=== PATIENT | female | born 1985 | race Caucasian/White ===

== ENCOUNTER 2022-10-03 07:40 | Outpatient (REF) | payer BC, SELFPAY ==
[2022-10-03 12:05] LABS: Basophils Absolute Auto 0.1 X10*3/uL (0.0-0.2); Basophils Percent Auto 0.6 % (0-2); Eosinophils Absolute Auto 0.1 X10*3/uL (0.0-0.4); Eosinophils Percent Auto 1.2 % (0-4); Hematocrit 41.9 % (37.0-47.0); Hemoglobin 13.9 g/dl (12.0-16.0); Imm Gran Abs Auto 0.03 X10*3/uL (0.00-0.03); Imm Gran Pct Auto 0.3 % (0.0-0.4); Lymphocytes Absolute Auto 4.4 X10*3/uL (1.2-4.9); MANUAL DIFF FLAG SCAN; Mean Corpuscular HGB Conc 33.2 g/dl (31.0-35.0); Mean Corpuscular Hemoglobin 30.9 pg (27.0-33.0); Mean Corpuscular Volume 93.1 fL (80.0-98.0); Mean Platelet Volume 11.6 fL (9.4-12.3); Monocytes Absolute Auto 1.1 X10*3/uL (0.1-1.2); Monocytes Percent Auto 9.7 % (2-11); Neutrophils Absolute Auto 5.3 x10*3/uL (2.0-8.3); Neutrophils Percent Auto 48.2 % (45-73); Platelet Count 289 X10*3/uL (160-400); Red Cell Distribution Width 13.7 % (11.0-16.0); SCAN SMEAR FLAG 1; White Blood Count 10.9 X10*3/uL (4.8-10.8)
[2022-10-03 12:08] LABS: Appearance Urine Cloudy; Color Urine Yellow; Glucose Urine UA Negative (Negative); Leukocyte Esterase Urine Negative (Negative); Nitrite Urine Negative (Negative); PH >= 9.0 (5.0-9.0); Specific Gravity - Urine 1.025 (1.005-1.025); Urine Blood Negative (Negative); Urine Ketones Negative (Negative); Urine Protein Trace mg/dL (Neg-Trace)
[2022-10-03 13:00] LABS: SLIDE REVIEW VERIFIED
[2022-10-03 15:56] LABS: Alanine Aminotransferase 8 U/L (0-31); Albumin Level 4.3 g/dL (3.5-5.0); Alkaline Phosphatase 49 U/L (39-117); Anion Gap 15 (12-20); Aspartate Amino Transferase 12 U/L (5-31); Bilirubin Total 0.3 mg/dL (0.0-1.0); Blood Urea Nitrogen 13 mg/dL (9-16); Calcium 9.1 mg/dL (8.4-10.2); Carbon Dioxide 21 mmol/L (22-29); Chloride 109 mmol/L (96-108); Cholesterol 179 mg/dL; Estimated Glomerular Filt Rate > 60; Glucose Fasting 103 mg/dL (60-99); HDL Cholesterol 45 mg/dL; LDL Cholesterol Calculated 113 mg/dl; Potassium 4.1 mmol/L (3.3-5.1); Sodium 141 mmol/L (135-145); Total Protein 6.6 g/dL (6.5-8.0); Triglycerides 108 mg/dL
[2022-10-03 16:00] LABS: TSH reflex Free T4 1.46 uIU/mL (0.32-4.0)
== END 2022-10-03 07:41 | disposition home or self-care (01) ==
LOC: HO.WFDLDS 07:40
PROVIDERS: Visit Provider Nurse Practitioner Family
DX: Z00.00 Encounter for general adult medical examination without abnormal findings (principal)
CPT/HCPCS: 36415; 80053; 80061; 81003; 84443; 85025

== ENCOUNTER 2022-10-10 07:07 | Outpatient (REF) | payer BC, SELFPAY ==
[2022-10-10 11:18] LABS: MANUAL DIFF FLAG NO
[2022-10-10 11:23] LABS: Basophils Absolute Auto 0.1 X10*3/uL (0.0-0.2); Basophils Percent Auto 0.6 % (0-2); Eosinophils Absolute Auto 0.1 X10*3/uL (0.0-0.4); Hematocrit 41.2 % (37.0-47.0); Hemoglobin 13.9 g/dl (12.0-16.0); Imm Gran Abs Auto 0.02 X10*3/uL (0.00-0.03); Imm Gran Pct Auto 0.2 % (0.0-0.4); Lymphocytes Absolute Auto 3.8 X10*3/uL (1.2-4.9); Lymphocytes Percent Auto 35.8 % (20-40); Mean Corpuscular HGB Conc 33.7 g/dl (31.0-35.0); Mean Corpuscular Hemoglobin 31.3 pg (27.0-33.0); Mean Corpuscular Volume 92.8 fL (80.0-98.0); Mean Platelet Volume 11.4 fL (9.4-12.3); Monocytes Absolute Auto 1.1 X10*3/uL (0.1-1.2); Monocytes Percent Auto 10.4 % (2-11); Neutrophils Absolute Auto 5.5 x10*3/uL (2.0-8.3); Platelet Count 289 X10*3/uL (160-400); Red Blood Count 4.44 X10*6/uL (4.20-5.50); Red Cell Distribution Width 13.6 % (11.0-16.0); White Blood Count 10.6 X10*3/uL (4.8-10.8)
[2022-10-10 11:41] LABS: Alanine Aminotransferase 10 U/L (0-31); Albumin Level 4.4 g/dL (3.5-5.0); Alkaline Phosphatase 51 U/L (39-117); Anion Gap 15 (12-20); Aspartate Amino Transferase 11 U/L (5-31); Blood Urea Nitrogen 10 mg/dL (9-16); Calcium 9.5 mg/dL (8.4-10.2); Carbon Dioxide 20 mmol/L (22-29); Chloride 110 mmol/L (96-108); Cholesterol 175 mg/dL; Estimated Glomerular Filt Rate > 60; Glucose Fasting 101 mg/dL (60-99); HDL Cholesterol 43 mg/dL; LDL Cholesterol Calculated 116 mg/dl; Potassium 3.9 mmol/L (3.3-5.1); Sodium 141 mmol/L (135-145); Triglycerides 83 mg/dL
[2022-10-10 12:18] LABS: TSH reflex Free T4 1.81 uIU/mL (0.32-4.0)
[2022-10-10 12:28] LABS: Appearance Urine Clear; Color Urine Yellow; Glucose Urine UA Negative (Negative); Leukocyte Esterase Urine Negative (Negative); Nitrite Urine Negative (Negative); Urine Blood Negative (Negative); Urine Ketones Negative (Negative); Urine Protein Negative (Neg-Trace)
== END 2022-10-10 07:08 | disposition home or self-care (01) ==
LOC: HO.WFDLDS 07:07
PROVIDERS: Visit Provider Nurse Practitioner Family
DX: Z00.00 Encounter for general adult medical examination without abnormal findings (principal); D72.829 Elevated white blood cell count, unspecified
CPT/HCPCS: 36415; 80053; 80061; 81003; 84443; 85025

== ENCOUNTER 2023-05-06 09:32 | Outpatient (AMB) | payer BC, SELFPAY ==
--- NOTE | 2023-05-06 09:40 | MHC.PC.OV ---
Vital Signs 05/06/23 09:42 Height 5 ft 3 in Weight 106 lb 2 oz BMI 18.8 BP 100/62 Blood Pressure Location Lt brachial Position Sitting Pulse 106 H Pulse Source Pulse Oximeter Pulse Oximetry (%) 96 Oxygen Delivery Method Room Air Intake Visit Reasons: right side nose pain/Knee pain Intake Note: pt is here for right knee pain for and has been seen in the walk-in but she says it comes and goes Allergies No Known Allergies Allergy (Verified 09/30/22 14:07) Medication List - Last Reconciled 05/06/23 by IAN Escalante hydroxyzine HCl 5 - 10 mg PO BID PRN olanzapine 10 mg PO BEDTIME 30 days Tobacco use date assessed: 05/06/23 Dental Screening Dental Screen Date: 05/06/23 Did you have a dental visit in the last 12 months?: Yes Did you have a dental problem in the last 6 months where you did not have access to dental care?: No Was dental information given to patient?: Patient has dentist HPI right side nose pain/Knee pain HPI Details Pt c/o right knee pain. She reports that this is worse with movement especially kneeling. She has difficulty getting in and out of bed due to the pain. Pt also reports intermittent bruising and erythema. She denies any swelling. Will order XR. Denies fever, chills, and dizziness. [facility] Medical History Anxiety H/O psychiatric care Surgical History History of hysterectomy History of lumpectomy of left breast History of salpingectomy S/P right knee surgery Family History Father Bipolar 1 disorder Substance use disorder Mental health disorder Mother Vertigo Paternal Grandmother Breast cancer Paternal Aunt Breast cancer Maternal Grandfather Emphysema, unspecified Maternal Grandmother Vertigo Skin cancer Social History Housing: House Patient Tobacco Use Status: Current everyday Tobacco user Cigarettes Per Day: 10 e-Cigarette/Vaping Use: Currently Using Second Hand Smoke Exposure: No service: No Current occupational status: employed Current occupation: insurance Current occupational exposures/hazards: No Cognitive needs: No Hearing needs: No Vision needs: No Questionnaire Thrive Questionnaire Date Thrive assessed: 09/30/22 DIMITRI-7 AMB Questionnaire DIMITRI-7 Date DIMITRI - 7 assessed: 09/30/22 Source: Developed by Drs. Arnulfo Sanchez, Alicia Jackson, Luis Antonio Nuno and colleagues, with an educational dwight from [employer]. Review of Systems Const Reports as per HPI Physical exam (Primary Care) Vital Signs: Last Vital Signs Pulse 106 H 05/06/23 09:42 BP 100/62 05/06/23 09:42 Pulse Ox 96 05/06/23 09:42 Oxygen Delivery Method Room Air 05/06/23 09:42 BMI result Body Mass Index 18.8 Tobacco/Smoking Status: Tobacco use Status Tobacco use date assessed 05/06/23 05/06/23 09:46 Patient Tobacco Use Status Current everyday Tobacco 05/06/23 09:41 e-Cigarette/Vaping Use Currently Using 05/06/23 09:41 Thrive Assessment: Date of Thrive Assessment Date Thrive assessed 09/30/22 05/06/23 09:41 Const General: cooperative Orientation/consciousness: patient oriented x3 Resp Effort & Inspection: normal respiratory effort Auscultation: clear to auscultation bilaterally Cardio Rate: regular rate Rhythm: regular rhythm Heart sounds: S1 normal heart sound present and S2 normal heart sound present Neuro General: patient oriented x3 Extrem Other: right knee: ? patellar hematoma, bony structure, - lachmans, - mcmurrays, able to extend and flex with minimal crepitus Psych Appearance: grossly normal Mental Status: mental status grossly normal Speech and movement: Normal speech and movement present Affect: normal affect Attitude: cooperative Thought process: Normal thought process present Thought content: Normal thought content present Insight: Good insight present (Psych) Judgement: Good judgement present (Psych) Assessment and Plan Assessment & Plan (1) Right knee pain: Code(s): M25.561 - Pain in right knee Plan: XR ordered Plan The patient agreed to the use of a biomedical equipment tech for this encounter. Scribed for IAN Palma by Linda Aguilar biomedical equipment tech, on 05/06/2023 at 09:50 EST Orders: Orders Comprehensive [place]. Panel Fast Today Z00.00 - Encounter for general adult medical examination without abnormal findings TSH reflex Free T4 Today Z00.00 - Encounter for general adult medical examination without abnormal findings UA CC w/rflx Micro + Cult Today Z00.00 - Encounter for general adult medical examination without abnormal findings Lipid Panel Today Z00.00 - Encounter for general adult medical examination without abnormal findings Complete Blood Count Auto Diff Today Z00.00 - Encounter for general adult medical examination without abnormal findings Coding Level of Care Code Est Pt Level 3 (08302) Diagnoses Right knee pain M25.561
[2023-05-06 09:42] VITALS: BP 100/62; PULSE 106; O2SAT 96; BMI 18.8
== END 2023-05-06 10:14 | disposition home or self-care (01) ==
PROVIDERS: PCP Nurse Practitioner Family; Visit Provider Nurse Practitioner Family
DX: M25.561 Pain in right knee (principal)
CPT/HCPCS: 99213

== ENCOUNTER 2023-05-06 09:59 | Outpatient (REF) | payer BC, SELFPAY | END 2023-05-06 10:00 | disposition home or self-care (01) | LOC: HO.HMGCX 09:59 | PROVIDERS: PCP Nurse Practitioner Family; Visit Provider Nurse Practitioner Family | DX: M25.561 Pain in right knee (principal) | CPT/HCPCS: 73564 ==

== ENCOUNTER 2023-09-02 08:41 | Emergency (ER) | payer BC, SELFPAY ==
[2023-09-02 08:50] VITALS: BP 116/88; PULSE 90; RESP 18; TEMP 37.1; O2SAT 97; BMI 18.0
--- NOTE | 2023-09-02 09:53 | ED_ITS ---
HPI - Eye Problem General Chief complaint: Eye Problems Stated complaint: Swollen L Eye Time Seen by Provider: 09/02/23 09:09 Source: patient Mode of arrival: ambulatory Limitations: no limitations History of Present Illness HPI Narrative: 38 year old female with pmhx significant for anxiety presents to the ED this morning for evaluation of left eyelid pain/ swelling since this morning. Reports waking up and noticing a swollen bump to her lower eyelid. Reports associated irritation of the eye however denies FB sensation. Denies trauma or injury to the eye. Does not recall anything flying into the eye. Reports her eye was fine prior to going to bed last night. Has not taken anything for pain/ discomfort at home. Denies draining or cruisting of the eye. Denies fever, chills, vision changes (blurred or double vision), vision loss, ear pain. Related Data Home Medications Medication Instructions Recorded Confirmed hydroxyzine HCl 10 mg tablet 5 - 10 mg PO BID PRN 09/25/21 05/06/23 Previous Rx's Medication Instructions Recorded olanzapine 10 mg tablet 10 mg PO BEDTIME 30 days #30 tabs 01/25/23 Allergies Allergy/AdvReac Type Severity Reaction Status Date / Time No Known Allergies Allergy Verified 09/02/23 08:52 Review of Systems Review of Systems: Constitutional: No fever, chills, fatigue, night sweats, weight changes ENT/Mouth: No ear pain, hearing loss, nasal congestion, sinus pain, rhinorrhea, sore throat, +eyelid swelling Eyes: No eye pain, swelling, redness, vision changes, discharge Cardio: No chest pain, palpitations, MONTANO, orthopnea, peripheral edema Pulm: No SOB, cough, sputum, wheezing, dyspnea, hemoptysis GI: No nausea, vomiting, hematemesis, abdominal pain, diarrhea, constipation, hematochezia, melena : No irregular bleeding, dysuria, frequency, urgency, hesitancy, hematuria, flank pain, urinary flow changes, urinary incontinence or retention MSK: No back pain, neck pain, joint pain, myalgias Skin: No lesions, rashes Neuro: No weakness, numbness, paresthesias, LOC, dizziness, headache All other systems reviewed and are negative. [facility] Past Medical History Attestation statement: The following information was validated with the patient. Source: old records reviewed and nursing notes reviewed Medical History H/O psychiatric care Anxiety Surgical History History of lumpectomy of left breast S/P right knee surgery History of hysterectomy History of salpingectomy Family History Family History Father Bipolar 1 disorder Substance use disorder Mental health disorder Mother Vertigo Paternal Grandmother Breast cancer Paternal Aunt Breast cancer Maternal Grandfather Emphysema, unspecified Maternal Grandmother Vertigo Skin cancer Social History Social History Housing: House Patient Tobacco Use Status: Current everyday Tobacco user Cigarettes Per Day: 10 e-Cigarette/Vaping Use: Currently Using Second Hand Smoke Exposure: No Advance Directives: No service: No Current occupational status: employed Current occupation: insurance Current occupational exposures/hazards: No Cognitive needs: No Hearing needs: No Vision needs: No Physical Exam Vital Signs: Vital Signs: Last Vital Signs Temp 98.7 F 09/02/23 08:50 Pulse 90 09/02/23 08:50 Resp 18 09/02/23 08:50 BP 116/88 09/02/23 08:50 Pulse Ox 97 09/02/23 08:50 O2 Del Method Room Air 09/02/23 08:50 BMI result Body Mass Index 18.0 Vital signs stable, afebrile. Const: General: cooperative, healthy appearing, comfortable, no acute distress, alert and awake Orientation/consciousness: patient oriented x3 Limitations: no limitations HEENT: Other: + left eye with 1cm x .5cm bump to nasal aspect of external left lower eyelid. No periorbital swelling. no pointing. No conjunctival injection or swelling. no exophthalmos or endophthalmitis. No subconjunctival hemorrhage. No FB or corneal abrasion. EOMs intact without pain or entrapment. Visual amin by confrontation intact. IOP left eye 15, right eye 16. No pain on palpation of lacrimal gland. No expressible discharge. Head: Yes normal to inspection, Yes normocephalic and Yes atraumatic Ears: hearing grossly normal bilaterally, external ears normal, TM's normal bilaterally, EAC's normal, mastoids normal and no periauricular adenopathy General nose exam: Normal external nose present Face and sinus: Yes sinuses nontender Eyes: General: appearance normal, both eyes and all related structures Neck: Neck: Yes normal visual inspection and Yes no meningeal signs Chest: Chest palpation & inspection: normal inspection of the chest Resp: Effort & Inspection: normal respiratory effort Auscultation: clear to auscultation bilaterally Cardio: Rate: regular rate Rhythm: regular rhythm Heart sounds: S1 normal heart sound present and S2 normal heart sound present Peripheral pulses: Peripheral pulses 2+ throughout GI: Inspection: Yes normal to inspection Palpation (GI): Soft to palpation, nontender, no guarding and hepatosplenomegaly present : General: Yes no CVA tenderness Back/Spine/Pelvis: Back: no CVA tenderness Skin: General skin exam: no rashes or lesions noted Neuro: General: patient oriented x3, gait normal, moves all extremities and no meningeal signs Cranial nerves: Yes CN's II-XII intact bilaterally Extrem: General: Yes normal to inspection and Yes full ROM Course Course Course Narrative: 1000-- exam consistent with external hordeolum of left eye. educated patient on warm compresses and saline eye drops. Discussed worrisome signs and symptoms of when to return to the ED. all questions answered at this time. Patient is agreeable disposition stable for discharge. Medical Decision Making Medical Decision Making MDM Narrative: 38 year old female with pmhx significant for anxiety presents to the ED this morning for evaluation of left eyelid pain/ swelling since this morning. Vital signs stable, afebrile. On exam, left eye with 1cm x 0.5cm bump to nasal aspect of external left lower eyelid. No periorbital swelling. no pointing. No conjunctival injection or swelling. no exophthalmos or endophthalmitis. No subconjunctival hemorrhage. No FB or corneal abrasion. EOMs intact without pain or entrapment. Visual amin by confrontation intact. IOP left eye 15, right eye 16. No pain on palpation of lacrimal gland. No expressible discharge. Clinical concern for external hordeolum vs chalazion vs conjunctivitis. Lower suspicion for corneal abrasion, FB, glaucoma, hyphema, dacroadenitis, dacrocystitis. Unlikely orbital cellulitis, preorbital cellulitis, globe rupture, , blow out fx. Patient to be discharged home. Differential Diagnosis Differential Diagnoses: The differential diagnosis associated with the presentation includes as above. Admission/Observation Not indicated. External Record Review External record reviewed: Inpatient record Prescription Management I considered prescription management with: Pain Medication and Antibiotic Social Determinants Patient?s care significantly limited by Social Determinants of Health including: Other Social Determinant of Health Critical Care Time Critical Care Time Critical Care Time: No Discharge Plan Discharge Clinical Impression: Hordeolum externum left lower eyelid Patient Disposition: Home, Self-Care Instructions: Alexy (ED) Additional Instructions: You were evaluated in the ED today for left eye redness/swelling. Your physical exam is consistent with a stye (hordeolum). This does not require treatment with antibiotics. Apply warm compresses 4 times daily to help swelling. The area may begin to open and drain. You may also purchase OTC saline eye drops to help with irritation. Follow up with PCP as needed. If symptoms persist or worsen or you begin to have vision changes, return to the ED. In the case of an emergency, call 911. Prescriptions: No Action olanzapine 10 mg tablet 10 mg PO BEDTIME 30 Days Qty: 30 2RF hydroxyzine HCl 10 mg tablet 5 - 10 mg PO BID PRN Referrals: Janusz Lino, FACILITIES MANAGEMENT EXECUTIVE-BC [Primary Care Provider] - Interventions: ED Discharge Assessment Last Done: 09/02/23 10:07 Discharge Date/Time: 09/02/23 10:11
== END 2023-09-02 10:11 | disposition home or self-care (01) ==
PROVIDERS: Emergency Provider Emergency Medicine; PCP Nurse Practitioner Family
DX: H00.015 Hordeolum externum left lower eyelid (principal); H57.12 Ocular pain, left eye
CPT/HCPCS: 99282

== ENCOUNTER 2023-09-29 08:18 | Outpatient (REF) | payer BC, SELFPAY ==
[2023-09-29 11:34] LABS: Appearance Urine Clear; Color Urine Yellow; Glucose Urine UA Negative (Negative); Leukocyte Esterase Urine Negative (Negative); Nitrite Urine Negative (Negative); Urine Blood Negative (Negative); Urine Ketones Negative (Negative); Urine Protein Negative (Neg-Trace)
[2023-09-29 11:37] LABS: MANUAL DIFF FLAG NO
[2023-09-29 11:47] LABS: Basophils Percent Auto 0.5 % (0-2); Eosinophils Absolute Auto 0.1 X10*3/uL (0.0-0.4); Eosinophils Percent Auto 1.2 % (0-4); Hematocrit 40.7 % (37.0-47.0); Hemoglobin 13.9 g/dl (12.0-16.0); Imm Gran Abs Auto 0.02 X10*3/uL (0.00-0.03); Imm Gran Pct Auto 0.2 % (0.0-0.4); Lymphocytes Absolute Auto 3.1 X10*3/uL (1.2-4.9); Lymphocytes Percent Auto 35.6 % (20-40); Mean Corpuscular HGB Conc 34.2 g/dl (31.0-35.0); Mean Corpuscular Volume 93.6 fL (80.0-98.0); Mean Platelet Volume 11.3 fL (9.4-12.3); Monocytes Absolute Auto 0.7 X10*3/uL (0.1-1.2); Monocytes Percent Auto 7.5 % (2-11); Neutrophils Absolute Auto 4.8 x10*3/uL (2.0-8.3); Platelet Count 284 X10*3/uL (160-400); Red Blood Count 4.35 X10*6/uL (4.20-5.50); Red Cell Distribution Width 14.4 % (11.0-16.0); White Blood Count 8.7 X10*3/uL (4.8-10.8)
[2023-09-29 12:18] LABS: Alanine Aminotransferase 11 U/L (0-31); Albumin Level 4.3 g/dL (3.5-5.0); Alkaline Phosphatase 50 U/L (39-117); Anion Gap 11 (12-20); Aspartate Amino Transferase 16 U/L (5-31); Bilirubin Total 0.3 mg/dL (0.0-1.0); Blood Urea Nitrogen 13 mg/dL (9-16); Calcium 9.5 mg/dL (8.4-10.2); Carbon Dioxide 24 mmol/L (22-29); Chloride 109 mmol/L (96-108); Cholesterol 173 mg/dL (<200); Estimated Glomerular Filt Rate > 60; Glucose Fasting 99 mg/dL (60-99); HDL Cholesterol 47 mg/dL (>40); LDL Cholesterol Calculated 107 mg/dL (<100); Potassium 3.7 mmol/L (3.3-5.1); Sodium 140 mmol/L (135-145); TSH reflex Free T4 1.04 uIU/mL (0.32-4.0); Total Protein 7.1 g/dL (6.5-8.0); Triglycerides 98 mg/dL (<150)
== END 2023-09-29 08:19 | disposition home or self-care (01) ==
LOC: HO.WFDLDS 08:18
PROVIDERS: Visit Provider Nurse Practitioner Family
DX: Z00.00 Encounter for general adult medical examination without abnormal findings (principal); Z13.6 Encounter for screening for cardiovascular disorders
CPT/HCPCS: 36415; 80053; 80061; 81003; 84443; 85025

== ENCOUNTER 2023-10-06 08:30 | Outpatient (AMB) | payer BC, SELFPAY ==
[2023-10-06 08:44] VITALS: BP 110/66; PULSE 113; O2SAT 96; BMI 18.7
--- NOTE | 2023-10-06 08:44 | MHC.PC.OV ---
Vital Signs 10/06/23 08:44 10/06/23 09:01 Height 5 ft 4 in Weight 109 lb BMI 18.7 BP 110/66 Blood Pressure Location Rt brachial Position Sitting Pulse 113 H 98 Pulse Source Pulse Oximeter Pulse Oximetry (%) 96 Oxygen Delivery Method Room Air Intake Visit Reasons: PE Intake Note: pt is here for physical exam, mammogram scheduled 10/14/23 [facility] due to feeling bumps in breast [employer] Required: No Allergies No Known Allergies Allergy (Verified 10/06/23 09:25) Medication List - Last Reconciled 10/06/23 by IAN Escalante hydroxyzine HCl 5 - 10 mg PO BID PRN olanzapine 10 mg PO BEDTIME 30 days Tobacco use date assessed: 10/06/23 Dental Screening Dental Screen Date: 10/06/23 Did you have a dental visit in the last 12 months?: Yes Did you have a dental problem in the last 6 months where you did not have access to dental care?: No Was dental information given to patient?: Patient has dentist HPI PE HPI Details Pt is here for a PE. Will order labs. Pt has a family hx of breast cancer. She has been having regular mammograms since age 29. Pt has a INJECTION MOLDER. recent labs resulted, WNL. PFSH Medical History H/O psychiatric care Anxiety Surgical History History of lumpectomy of left breast S/P right knee surgery History of hysterectomy History of salpingectomy Family History Father Bipolar 1 disorder Substance use disorder Mental health disorder Mother Vertigo Paternal Grandmother Breast cancer Paternal Aunt Breast cancer Maternal Grandfather Emphysema, unspecified Maternal Grandmother Vertigo Skin cancer Social History Housing: House Patient Tobacco Use Status: Current everyday Tobacco user Cigarettes Per Day: 10 e-Cigarette/Vaping Use: Currently Using Second Hand Smoke Exposure: No service: No Current occupational status: employed Current occupation: insurance Current occupational exposures/hazards: No Cognitive needs: No Hearing needs: No Vision needs: No Questionnaire PHQ-9 Over the last 2 weeks, how often have you been bothered by any of the following problems? 1. Little interest or pleasure in doing things: not at all 2. Feeling down, depressed, or hopeless: not at all 3. Trouble falling or staying asleep, or sleeping too much: not at all 4. Feeling tired or having little energy: not at all 5. Poor appetite or overeating: not at all 6. Feeling bad about yourself - or that you are a failure or have let yourself or your family down: not at all 7. Trouble concentrating on things, such as reading the newspaper or watching television: not at all 8. Moving or speaking so slowly that other people could have noticed. Or the opposite - being so fidgety or restless that you have been moving around a lot more than usual: not at all 9. Thoughts that you would be better off or of hurting yourself in some way: not at all Total score: 0 Depression Screening Interpretation: Negative Depression Screening Done: Yes 48964 - PHQ-9 Billing: Yes Source: Developed by Drs. Arnulfo Sanchez, Alicia Jackson, Luis Antonio Nuno and colleagues, with an educational dwight from [employer]. Thrive Questionnaire Date Thrive assessed: 10/06/23 I am a: Patient What is your living situation today?: I have a steady place to live Within the past 12 months, did the food you bought not last and you didn't have the money to get more?: Never true Within the past 12 months, did you worry whether your food would run out before you got money to buy more?: Never true Do you have trouble paying for medicines?: No Do you have trouble getting transportation to medical appointments?: No Do you have trouble paying your heating and electricity bill?: No Do you have trouble taking care of your child, family member or friend?: No Do you have trouble with day-to-day activities such as bathing, preparing meals, shopping, managing finances, etc.?: No Are you currently unemployed and looking for a job?: No Are you interested in more education?: No Please select the resources that you would like help with: None Currently or been in a relationship where the following occur: no concerns reported THRIVE Score: 0 AUDIT C Alcohol Use Questionnaire (AUDIT-C) 1. How often do you have a drink containing alcohol?: Monthly or less 2. How many drinks containing alcohol do you have on a typical day when you are drinking?: 1 or 2 3. How often do you have six or more drinks on one occasion?: Never Total Score: 1 Score Reviewed/Action Taken: Yes DIMITRI-7 AMB Questionnaire DIMITRI-7 Date DIMITRI - 7 assessed: 10/06/23 Feeling nervous, anxious, or on edge: 1 = Several days Not being able to stop or control worryin = Not at all Worrying too much about different things: 0 = Not at all Trouble relaxin = Not at all Being so restless that it is hard to sit still: 0 = Not at all Becoming easily annoyed or irritable: 0 = Not at all Feeling afraid as if something awful might happen: 0 = Not at all Total DIMITRI-7 score (0-4 normal; 5-9 mild; 10-14 moderate; 15-21 severe): 1 Source: Developed by Drs. Arnulfo Sanchez, Alicia Jackson, Luis Antonio Nuno and colleagues, with an educational dwight from [employer]. DIMITRI-7 Assessment Billing DIMITRI-7 Assessment Tool: DIMITRI-7 Assessment 11643 Review of Systems Const Denies chills and Denies fever(s) Eyes Denies blurry vision ENT Denies vertigo, Denies dizziness and Denies sore throat Card Denies chest pain at rest, Denies chest pain with activity, Denies diaphoresis, Denies dyspnea and Denies dyspnea on exertion Resp Denies cough, Denies dyspnea, Denies dyspnea on exertion and Denies wheezing GI Denies abdominal pain, Denies melena, Denies hematochezia, Denies constipation, Denies diarrhea and Denies loose stools Denies hematuria Musc Denies numbness and Denies tingling Skin/Breast Denies lesions Neuro Denies vertigo, Denies dizziness, Denies numbness and Denies tingling Psych Denies anxiety, Denies depression, Denies homicidal ideation, Denies suicidal ideation and Denies other (substance abuse) Aller/Immun Denies wheezing Physical exam (Primary Care) Vital Signs: Last Vital Signs Pulse 113 H 10/06/23 08:44 BP 110/66 10/06/23 08:44 Pulse Ox 96 10/06/23 08:44 Oxygen Delivery Method Room Air 10/06/23 08:44 BMI result Body Mass Index 18.7 Tobacco/Smoking Status: Tobacco use Status Tobacco use date assessed 10/06/23 10/06/23 08:51 Patient Tobacco Use Status Current everyday Tobacco 10/06/23 08:51 e-Cigarette/Vaping Use Currently Using 10/06/23 08:51 Depression Screening Interpretation: Negative Thrive Assessment: Date of Thrive Assessment Date Thrive assessed 09/30/22 10/06/23 08:51 Currently or been in a relationship where the following occur: no concerns reported Const Other: skinny stature General: cooperative Nutritional Appearance: well nourished Orientation/consciousness: patient oriented x3 HENMT Head: Yes normal to inspection, Yes normocephalic and Yes atraumatic Ears: TM's normal bilaterally Eyes General: appearance normal, both eyes and all related structures Alignment and Position: alignment normal and position normal Neck Neck: Yes normal visual inspection and Yes no lymphadenopathy Thyroid: Thyroid normal Resp Effort & Inspection: normal respiratory effort Auscultation: clear to auscultation bilaterally Cardio Rate: regular rate Rhythm: regular rhythm Heart sounds: S1 normal heart sound present, S2 normal heart sound present and no murmurs GI Palpation (GI): Soft to palpation and nontender Auscultation: normal bowel sounds Skin Rashes: no rashes Neuro General: patient oriented x3, moves all extremities, no focal motor deficits and deep tendon reflexes 2+ bilaterally Romberg Test: Negative Psych Appearance: grossly normal Mental Status: mental status grossly normal Speech and movement: Normal speech and movement present Affect: normal affect Attitude: cooperative Thought process: Normal thought process present Thought content: Normal thought content present Insight: Good insight present (Psych) Judgement: Good judgement present (Psych) Assessment and Plan Assessment & Plan (1) Physical exam: Code(s): Z00.00 - Encounter for general adult medical examination without abnormal findings Plan: Labs ordered Plan The patient agreed to the use of a medical chemist for this encounter. Scribed for IAN Palma by Linda Aguilar medical chemist, on 10/06/2023 at 08:55 EST. Orders: Orders Complete Blood Count Auto Diff Today Z00.00 - Encounter for general adult medical examination without abnormal findings Lipid Panel Today Z00.00 - Encounter for general adult medical examination without abnormal findings UA CC w/rflx Micro + Cult Today Z00.00 - Encounter for general adult medical examination without abnormal findings Comprehensive [place]. Panel Fast Today Z00.00 - Encounter for general adult medical examination without abnormal findings TSH reflex Free T4 Today Z00.00 - Encounter for general adult medical examination without abnormal findings Coding Level of Care Code Est Pt Prev Care 18-39y(72370) Diagnoses Physical exam Z00.00 Additional Codes DIMITRI-7 Assessment Billing - DIMITRI-7 Assessment Tool: DIMITRI-7 Assessment 36599 ([id number])
[2023-10-06 09:01] VITALS: PULSE 98
== END 2023-10-06 09:10 | disposition home or self-care (01) ==
PROVIDERS: Visit Provider Nurse Practitioner Family
DX: Z00.00 Encounter for general adult medical examination without abnormal findings (principal)
CPT/HCPCS: 99395

== ENCOUNTER 2024-01-06 12:21 | Outpatient (AMB) | payer BC, SELFPAY ==
[2024-01-06 12:21] VITALS: BP 102/66; PULSE 92; TEMP 36.8; O2SAT 98; BMI 18.4
--- NOTE | 2024-01-06 12:21 | AM.OFFWIN_ITS ---
Intake Vital Signs 01/06/24 12:21 Height 5 ft 4 in Weight 107 lb BMI 18.4 BP 102/66 Blood Pressure Location Lt brachial Position Sitting Pulse 92 Pulse Source Pulse Oximeter Temp 98.2 F Pulse Oximetry (%) 98 Oxygen Delivery Method Room Air Intake Visit Reasons: Rt shoulder pain/Numbness and tingling Intake Note: pt is here today for shoulder pain and numbness and tingling from elbow to shoulder started first week of november. Dog pulled her. Limited ROM Patient Tobacco Use Status: Current everyday Tobacco user Allergies No Known Allergies Allergy (Verified 01/06/24 12:34) Do you need a note to return to daycare/school/sports/work: Yes HPI HPI Comments History of Present Illness Details Patient is a 38-year-old female complaining of pain in her right biceps with the numbness and tingling. She believes she pulled her biceps muscle in October when she was walking her 50 lb dog and the dog pulled her, she states it has been hurting ever since and is painful to as well as raise her arm over her head. She states she thinks she just keeps re-injuring it over and over because her dog keeps pulling. She does have a history of carpal tunnel but denies any changes in the numbness and tingling in her hands. [facility] Medical History H/O psychiatric care Anxiety Surgical History History of lumpectomy of left breast S/P right knee surgery History of hysterectomy History of salpingectomy Family History Father Bipolar 1 disorder Substance use disorder Mental health disorder Mother Vertigo Paternal Grandmother Breast cancer Paternal Aunt Breast cancer Maternal Grandfather Emphysema, unspecified Maternal Grandmother Vertigo Skin cancer Social History Housing: House Patient Tobacco Use Status: Current everyday Tobacco user Cigarettes Per Day: 10 e-Cigarette/Vaping Use: Currently Using Second Hand Smoke Exposure: No service: No Current occupational status: employed Current occupation: insurance Current occupational exposures/hazards: No Cognitive needs: No Hearing needs: No Vision needs: No Review of Systems Const All systems reviewed & are unremarkable except as noted in HPI and below Physical Exam Vital Signs: Last Vital Signs Temp 98.2 F 01/06/24 12:21 Pulse 92 01/06/24 12:21 BP 102/66 01/06/24 12:21 Pulse Ox 98 01/06/24 12:21 Oxygen Delivery Method Room Air 01/06/24 12:21 BMI result Body Mass Index 18.4 Const General: cooperative, healthy appearing, comfortable, no acute distress and well developed Orientation/consciousness: patient oriented x3 Limitations: no limitations HEENT Head: Yes normal to inspection Eyes General: appearance normal, both eyes and all related structures Neck Neck: Yes normal visual inspection and Yes full ROM Skin General skin exam: no rashes or lesions noted Neuro General: patient oriented x3 Extrem Right upper extremity: normal to inspection and shoulder/upper arm (4/5 strength, 4/5 safety investigator/cause analyst strength) Details: abnormal ROM Details: pain with active ROM Details: in ABduction; no tenderness, no swelling, no abrasions, no lacerations, no ecchymosis, no deformity and no unusual warmth Assessment & Plan Assessment & Plan (1) Biceps muscle strain: Code(s): S46.219A - Strain of muscle, fascia and tendon of other parts of biceps, unspecified arm, initial encounter Qualifiers: Encounter type: initial encounter Laterality: right Qualified Code(s): S46.211A - Strain of muscle, fascia and tendon of other parts of biceps, right arm, initial encounter Plan: Gave right arm splint as well as instructions to rest and in the splint, use ice, ibuprofen/Aleve. Recommended following up with patient's orthopedic doctor at [facility] if no improvement. Plan see above Coding Level of Care Code Est Pt Level 3 (20581) Diagnoses Strain of right biceps muscle, initial encounter S46.211A Encounter type: initial encounter Laterality: right
--- OUTSIDE RECORDS SUMMARY | 2024-01-06 12:22 | XMS_ITS | Continuity of Care Document ---
Author Organization [facility] ter Address [address] [place] [address]- Care Team Providers Care Residential Care Facility Manager Name Role Phone Zoie GOLDMAN, Janusz Luz Primary Care Physician Encounter [facility] Date(s): 11/22/20 - 02/16/[address] [address]- Attending Physician: Janusz Lino NP Admitting Physician: Janusz Lino NP Referring Physician: Janusz Lino NP Allergies, Adverse Reactions, Alerts Substance Reaction Severity Status NKA Active Medications ferrous sulfate 220 mg/5 ml oral elixir 5 mL = 220 mg, By Mouth, 2 times a day, # 450 mL, 3 Refills, Maintenance, 12/02/18 7:51:55 EDT, Elixir Start Date: 12/02/18 Status: Ordered Olanzapine = 6.25 mg, By Mouth, Daily at bedtime, 0 Refills, Maintenance, 08/21/18 13:46:50 EST Start Date: 08/21/18 Status: Ordered Pt.'s Own Meds hair,skin,nails 1 tab, By Mouth, Daily, Maintenance, 11/20/18 14:47:01 EDT Start Date: 11/20/18 Status: Ordered Vitamin C 1 chewable, By Mouth, Daily, 0 Refills, Maintenance, 11/20/18 14:46:40 EDT Start Date: 11/20/18 Status: Ordered Problem List Condition Effective Dates Status Health Status Inform ant Symptomatic anemia(Confirmed) Active Social History Social History Type Response Smoking Status 5-9 cigarettes (betw een 1/4 to 1/2 pack)/day in last 30 days entered on: 08/21/18 Sex
--- OUTSIDE RECORDS SUMMARY | 2024-01-06 12:22 | XMS_ITS | Continuity of Care Document ---
Author Organization [facility] Address [address] [place] [address]- Care Team Providers Care Pbx Wire Chief Name Role Phone Janusz Lino NP Primary Care Physician [phone] Encounter [facility] [place] [place] Date(s): 10/20/23 - 12/11/23 [facility] [address] [place] [address]- Attending Physician: Yolanda Graves MD Admitting Physician: Yolanda Graves MD Referring Physician: Marcella Cobian MD Allergies, Adverse Reactions, Alerts No Known Allergies Medications ferrous sulfate 220 mg/5 ml oral [...] Date: 11/20/18 Status: Ordered Problem List Condition Confirmation Course Effective Dates Status Health [facility] Informant Symptomatic anemia Confirmed Active Social History Social History Type Response Smoking Status 5-9 cigarettes (betw een 1/4 to 1/2 pack)/day in last 30 days entered on: 08/21/18 Sex Patient Care team information Care Team Personnel Name: Janusz Lino NP Position: Reference Physician Member Role: PCP Address: Address: [address] [place] [address]- Care Team Related Persons Name: JOHN CHO Name: TOMI ENG Address: home [address] [place] [address]
--- OUTSIDE RECORDS SUMMARY | 2024-01-06 12:22 | XMS_ITS | Continuity of Care Document ---
Author Organization [facility] ter Address [address] [place] [address]- Care Team Providers Care Stuntman Name Role Phone Zoie GOLDMAN, Janusz Luz Primary Care Physician Encounter [facility] Date(s): 08/31/20 - 11/06/[address] [address] Attending Physician: Janusz Lino NP Admitting Physician: [...]
--- OUTSIDE RECORDS SUMMARY | 2024-01-06 12:22 | XMS_ITS | Continuity of Care Document ---
Author Organization [facility] Address [address] [place] [address]- Care Team Providers Care International Recruiter Name Role Phone Janusz Lino NP Primary Care Physician Encounter [facility] [place] Date(s): 11/11/23 - 12/11/23 [facility] [address] [place] [address]- Attending Physician: Harjinder Taylor Admitting Physician: Harjinder Taylor Referring Physician: AdmtrHarjinder Allergies, Adverse Reactions, Alerts No Known Allergies [...] Physician Member Role: PCP Address: Address: [address] [place] [address]- Care Team Related Persons Name: JOHN CHO Name: TOMI ENG Address: home [address] [place] [address]
== END 2024-01-06 13:13 | disposition home or self-care (01) ==
PROVIDERS: PCP Nurse Practitioner Family; Visit Provider Physician Assistant
DX: S46.211A Strain of muscle, fascia and tendon of other parts of biceps, right arm, initial encounter (principal)
CPT/HCPCS: 99213

== ENCOUNTER 2024-10-27 07:42 | Outpatient (REF) | payer BC, SELFPAY ==
--- NOTE | ~2024-10-27 | XR_ITS ---
EXAMINATION: XR CHEST 2 VIEWS HISTORY: B34.9 - Viral infection, unspecified COMPARISON: There are no prior studies for comparison. FINDINGS: PA and lateral views of the chest are submitted. The lungs are expanded and clear. There is no pleural effusion, pneumothorax, or pulmonary vascular congestion. The heart is normal in size. The bones are intact. XR/XR chest 2V IMPRESSION: Normal examination of the chest. Electronically signed by: Arnulfo Morris MD 10/27/2024 10:52 AM EDT
--- OUTSIDE RECORDS SUMMARY | 2024-10-27 07:45 | XMS_ITS ---
Author Organization [facility] Address [address] [place] [address] Care Team Providers Care Sorter/Assay Tech Name Role Phone Codey Theresa Unavailable [phone] Encounters Encounter Location Date Provider Diagnosis [address] [address] 02/24/2024 Theresa Alegre ASSESSMENTS Encounter Date Diagnosis Assessment Notes Treatment Notes Treatment Clinical Notes Section Notes 02/24/2024 Case discussed with collaborating physician Stefan Ramos who reviewed the assessment and plan. Chart, medications, labs, vital signs reviewed. Dictation was accomplished with the use of [employer] voice recognition software, prone to medical misidentifications and grammatical errors. This is unintentional and the practitioner does try to identify and correct these, but some could still be present. Please do not hesitate to contact practitioner for clarification. All questions answered to patients satisfaction. Patient verbalized understanding of diagnosis and treatments explained. To call sooner prior to next visit it any questions/concerns arise. PLAN OF TREATMENT No Information Progress Notes * Lashawn ENGDOB:1985 (39 yo F)Acc No.[id number]:02/24/2024 Progress Notes Patient:??Lashawn ENG Provider:??Theresa Alegre PA-C :1985?Age:38 Y?Sex:Fe male Date:02/24/2024 [place] Subjective: * Chief Complaints: * ? * HPI: ?Constitutional:? Lashawn is a 38-year-old female new patient to our practice today here to establish care. * ROS:?Constitutional: Patient denies any excessive fatigue with exercise, no weight loss, no fever and no night sweats Eyes: No eye discharge, no itching, no redness. Ear nose throat: No sore throat, postnasal drip, runny nose, Sneezing Cardiovascular: No chest pain, no shortness of breath, no dyspnea on exertion, no PND, no orthopnea, no irregular pulse Respiratory: No chronic cough, no hemoptysis, no sputum, no wheezing GI, no diarrhea, no constipation no blood in the stools, no pain associated with eating, no indigestion Genitourinary: No painful urination no hesitancy no blood in the urine, Musculoskeletal, no limitations to walking and running, no joint deformity, no joint stiffness, no chronic back pain, no noise with joint movement Integumentary, no new skin rash. No new changes in skin moles Neurological: No history of seizures, memory loss, No language dysfunction, No inability to concentrate, no localized weakness, no sensation loss, no confusion Psychiatric: No depression, no suicidal thoughts, no anxiety Endocrine: No polyuria no polyphagia or polydipsia. * Medical History:?? Objective: * Physical Examination:?General: Well appearing, well nourished, age appropriate in no acute distress. Speaking in full, clear sentences. ?SKIN: Warm, dry intact. No rashes/lesions. ?HEENT: Normocephalic atraumatic. EOM intact. No nystagmus noted. PERRLA. ?LUNGS: Clear to auscultation bilaterally, no wheezes, rales or rhonchi ?CARDIAC: Regular rate and rhythm, no murmurs, rubs or gallops. ?Extremities: Warm and well perfused. No edema noted. ?Neuro: CN II-XI grossly intact. Speaking in full sentences. Hearing intact. Assessment: * Assessment: Case discussed with collabor ating physician Stefan Ramos who reviewed the assessment and plan. Chart, medications, labs, vital signs reviewed. Dictation was accomplished with the use of [employer] voice recognition software, prone to medical misidentifications and grammatical errors. This is unintentional and the practitioner does try to identify and correct these, but some could still be present. Please do not hesitate to contact practitioner for clarification. All questions answered to patients satisfaction. Patient verbalized understanding of diagnosis and treatments explained. To call sooner prior to next visit it any questions/concerns arise. Plan: * Treatment: * Procedure Codes:??74962 NO S HOW OFFICE VISIT * Images: Billing Information: * Visit Code:?? * Procedure Codes:?? 08848 NO SHOW OFFICE VISIT. * Sign off status: Pending * Provider:??Theresa Alegre PA-C Date:??01/27 History and Physical Notes * HPI (History of Present Illness) Category Sub-Category Detail Notes Category Not es Constitutional Lashawn is a 38 -year-old female new patient to our practice today here to establish care. Physical Examination Category Sub-Category Detail Notes Section Note s General: Well appearing, well nourished, age appropriate in no acute distress. Speaking in full, clear sentences. SKIN: Warm, dry intact. No rashes/lesions. HEENT: Normocephalic atraumatic. EOM intact. No nystagmus noted. PERRLA. LUNGS: Clear to auscultation bilaterally, no wheezes, rales or rhonchi CARDIAC: Regular rate and rhythm, no murmurs, rubs or gallops. Extremities: Warm and well perfused. No edema noted. Neuro: CN II-XI grossly intact. Speaking in full sentences. Hearing intact.
--- OUTSIDE RECORDS SUMMARY | 2024-10-27 07:45 | XMS_ITS | Patient Health Record ---
Author Organization [facility] Address [address] [place] [address] Care Team Providers Care Lens Blank Gauger Name Role Phone Theresa Alegre Unavailable [phone] REASON FOR REFERRAL No Information Encounters Encounter Location Date Provider Diagnosis [address] [place] [address] 02/24/2024 Theresa Codey ASSESSMENTS Encounter Date Diagnosis Assessment Notes Treatment Notes Treatment Clinical Notes Section Notes 02/24/2024 Case discussed with collaborating physician Stefan Ramos who reviewed the assessment and plan. Chart, medications, labs, vital signs reviewed. Dictation was accomplished with the use of [employer] voice recognition software, prone to medical misidentifications [...] questions/concerns arise. PLAN OF TREATMENT No Information Insurance Providers Payer Name Payer Address Payer Phone Subscriber Number Group Number Insured Name Patient Relationship to Insured Coverage Start Date Coverage End Date [facility] [address] [place] [address] [phone] [id number] OliveLashawn duarte Self - patient is the insured
--- OUTSIDE RECORDS SUMMARY | 2024-10-27 07:45 | XMS_ITS ---
Author Organization [facility] Address [address] [place] [address] Care Team Providers Care Cutter Operator Asbestos Shingle Name Role Phone HYUN KEARNS M.D Primary Care Provider CHRISTINA Berry Unavailable [phone] REASON FOR VISIT FOUND SMALL LUMP UNDER BREAST Encounters Encounter Location Date Provider Diagnosis [facility] [address] 08/31/2024 CHRISTINA NARANJO Plan Of Treatment No Information Progress Notes * ZAYDA ENGDOB:1985 (39 yo F)Acc No.[id number]:08/31/2024 PROGRESS NOTES Patient:?ZAYDA ENG Provider:?CHRISTINA NARANJO MD :1985???Age:39 Y???Sex:Female D ate:08/31/2024 Address:[address] [place], [place] [id number] Pcp:HYUN KEARNS M.D Subjective: * Chief Complaints: * ???1. FOUND SMALL LUMP UNDER BREAST. * Medical History:? Objective: * Vitals:? Assessment: Plan: * Treatment: * Images: Billing Information: * Visit Code:? * Procedure Codes:? * Electronic signature of CHRISTINA NARANJO MD on 10/27/2024 at 07:45 AM EDT Sign off status: Pending * Provider:?CHRISTINA NARANJO MD Date:?2024 Generated for Chatai destinee/[employer]/eTransmitting on:?10/27/2024 07:45 AM EDT
--- OUTSIDE RECORDS SUMMARY | 2024-10-27 07:45 | XMS_ITS ---
Author Organization [employer] Address [address] [address] Care Team Providers Care Mental Retardation Nurse Name Role Phone HYUN KEARNS M.D Primary Care Provider CHRISTINA Berry Unavailable [phone] REASON FOR VISIT FOUND SMALL LUMP UNDER BREAST Encounters Encounter Location Date Provider Diagnosis [facility] [employer] [address] [address] 08/26/2024 CHRISTINA NARANJO Unspecified lump in breast N63 and Mastodynia N64.4 Assessments Encounter Date Diagnosis (ICD Code) Assessment Notes Treatment Notes Treatment Clinical Notes Section Notes 08/26/2024 Unspecified lump in breast (ICD-10 - N63) Refer to breast surgeon for further evaluation and treatment. 08/26/2024 Mastodynia (ICD-10 - N64.4) Rule out Discussed causes of breast tenderness including normal physiological changes related to hormonal fluctuation and muscle strain. Reviewed relief measures including analgesics, rest and local heat as needed. Discussed importance of supportive bra. Encouraged to see a bra fitting specialist to be sure of the proper fit and support. Breast self-exam is taught and encouraged Reduce caffeine intake Counseled on weight loss Vit E 1,200IU and/or Evening Rhine Oil 3000mg daily x 6 months and reevaluate Plan Of Treatment Treatment Notes Assessment Notes Unspecified lump in breast Refer to javier st surgeon for further evaluation and treatment. Mastodynia Rule out Discussed causes of breast tenderness including normal physiological changes related to hormonal fluctuation and muscle strain. Reviewed relief measures including analgesics, rest and local heat as needed. Discussed importance of supportive bra. Encouraged to see a bra fitting specialist to be sure of the proper fit and support. Breast self-exam is taught and encouraged Reduce caffeine intake Counseled on weight loss Vit E 1,200IU and/or Evening Rhine Oil 3000mg daily x 6 months and reevaluate Pending Test Test Name Order Date Ultrasound : Breast(s), unilateral or bi lateral 08/26/2024 Diagnostic Digital Breast 3D, Bilateral 08/26/2024 Progress Notes * ZAYDA ENGDOB:1985 (39 yo F)Acc No.[id number]:08/26/2024 PROGRESS NOTES Patient:?ZAYDA ENG Provider:?CHRISTINA NARANJO MD :1985???Age:39 Y???Sex:Female D ate:08/26/2024 Address:[address] [place], [place] [address] Pcp:HYUN KEARNS M.D Subjective: * Chief Complaints: * ???1. FOUND SMALL LUMP UNDER BREAST. * HPI: ???DEVOPS SOLUTIONS ARCHITECT (Problems):?Breast Pain/Mass:?Date of onset:?__ ?How did the problem start:?__ ?Location:?__ ?Pain:?__ ?Severity of pain:?__ ?Radiates:?__ ?Does problem include breast mass:?__ ?Onset and progress of pain or mass:?__ ?Problem is associated with:?__ ?Any recent trauma to the breast??__ ?Any personal history of breast biopsy??Yes ?Personal history of breast cancer??No fibroadenoma ?Family history of breast cancer??__ ?Date of last mammogram?10/14/23 - 3 hypoechoic solid masses, 2 on the right, one on the left - likely fibroadenoma or variant (rt breast at 12:00, rt breast 10:00, lt breast 3:00). These were unchanged at a 6 month followup ultrasound on 04/20/24. * ROS:?General/Constitutional:?Patient denies?fever, weight gain, weight loss.?Breast:?Patient complaining of?....? * Medical History:? Objective: * Vitals:? * Examination: ???General Exam: ?CONSTITUTIONAL:?General Appearance:?alert, in no acute distress, normal, well nourished EXAMINED IN UPRIGHT AND SUPINE POSITIONS ?BREAST, Right:?Inspection/Palpation:?no discharge, no masses present, no nipple retraction, no skin dimpling, no tenderness, no supra/infraclavicular adenopathy, no axillary adenopathy ?BREAST, Left:?Inspection/Palpation:?no discharge, no masses present, no nipple retraction, no skin dimpling, no tenderness, no supra/infraclavicular adenopathy, no axillary adenopathy ?SKIN:?Skin:?normal?Breast: ?FINDING #1:? ....?Nipple: ?DISCHARGE:? none.?RETRACTION:? none.?ULCERATION:? none.?MASS:? none.?TENDERNESS:? none.?SWELLING:? none.?SCALING, FLAKING SKIN:? none.?Psychiatry: ?AFFECT:? appropriate.?ATTITUDE:? cooperative.?SPEECH:? clear.? Assessment: * Assessment: 1.?Unspecified lump in breas t - N63 (Primary)???2.?Mastodynia - N64.4??? Plan: * Treatment: 2.?Mastodynia? Notes: Rule out Discussed causes of breast tenderness including normal physiological changes related to hormonal fluctuation and muscle strain. Reviewed relief measures including analgesics, rest and local heat as needed. Discussed importance of supportive bra. Encouraged to see a bra fitting specialist to be sure of the proper fit and support. Breast self-exam is taught and encouraged Reduce caffeine intake Counseled on weight loss Vit E 1,200IU and/or Evening Rhine Oil 3000mg daily x 6 months and reevaluate?? * Images: Billing Information: * Visit Code:? 45918 Office Visit, Est Pt., Level 4. * Procedure Codes:? * Electronic signature of CHRISTINA NARANJO MD on 10/27/2024 at 07:44 AM EDT Sign off status: Pending * Provider:?CHRISTINA NARANJO MD Date:?2024 Generated for Patel felipe/[employer]/eTransmitting on:?10/27/2024 07:44 AM EDT History and Physical Notes * HPI (History of Present Illness) Category Sub-Category Detail Notes Category Not es DEVOPS SOLUTIONS ARCHITECT (Problems) Breast Pain/Mass: Date of onset:: __ How did the problem start:: __ Location:: __ Pain:: __ Severity of pain:: __ Radiates:: __ Does problem include breast mass:: __ Onset and progress of pain or mass:: __ Problem is associated with:: __ Any recent trauma to the breast?: __ Any personal history of javier st biopsy?: Yes ?Personal history of breast cancer?: No fibroadenoma Family history of breast cancer?: __ Date of last mammogram: 10/14/23 - 3 hypo echoic solid masses, 2 on the right, one on the left - likely fibroadenoma or variant (rt breast at 12:00, rt breast 10:00, lt breast 3:00). These were unchanged at a 6 month followup ultrasound on 04/20/24. Examination Category Sub-Category Detail Notes Category Not es Psychiatry ATTITUDE: cooperative AFFECT: appropriate SPEECH: clear Nipple DISCHARGE: none RETRACTION: none ULCERATION: none MASS: none TENDERNESS: none SWELLING: none SCALING, FLAKING SKIN: none Breast FINDING #1: ... General Exam CONSTITUTIONAL: General Appearan ce:: alert, in no acute distress, normal, well nourished EXAMINED IN UPRIGHT AND SUPINE POSITIONS SKIN: Skin:: normal BREAST, Right: Inspection/Palpation :: no discharge, no masses present, no nipple retraction, no skin dimpling, no tenderness, no supra/infraclavicular adenopathy, no axillary adenopathy BREAST, Left: Inspection/Palpation :: no discharge, no masses present, no nipple retraction, no skin dimpling, no tenderness, no supra/infraclavicular adenopathy, no axillary adenopathy
--- OUTSIDE RECORDS SUMMARY | 2024-10-27 07:46 | XMS_ITS | Patient Health Record ---
Author Organization [facility] Address [employer] [address] [address] Care Team Providers Care Houseman Name Role Phone HYUN KEARNS M.D Primary Care Provider CHRISTINA Berry Unavailable [phone] Allergies No Known Allergies Reason For Referral No Information Medications Medication SIG (Take, Route, Frequency, Duration) Notes Start Date End Date Status OLANZapine 10 MG 1 tablet Orally Once a day Active Vitamin D Active Vitamin C Active Hydrocortisone Acetate 25 MG 1 suppository Rectal Three times a day prn for 10 days 05/22/2020 Not-Taking Social History Tobacco Use: Social History Observation Description Date Details (start date - stop date) Former Smoker NA - NA Tobacco Use/Smoking Question Answer Notes Are you a former smoker How long has it been since you last smoked? 3-6 months Alcohol Screen (Audit-C) Question Answer Notes Did you have a drink containing alcohol in the p ast year? No Points 0 Interpretation Negative Sexual History Question Answer Notes Had sex in the past 12 months (vaginal, oral, or anal)? Yes with Men only Prevention strategies discussed: Other Tobacco use other than smoking: Question Answer Notes Are you an other tobacco user? No Problems Problem Type SNOMED Code ICD Code Onset Dates Problem Status W/U Status Risk Notes Problem Mastodynia (09766483) Mastodynia (N64.4) Active confirmed Problem Bipolar disorder (88562650) Bipolar disorder, unspecified (F31.9) Active confirmed Problem Subacute and chronic vaginitis (N76.1) Active confirmed mild BV Problem Perimenopausal disorder (584553855) Other specified menopausal and perimenopausal disorders (N95.8) Active confirmed Encounters Encounter Location Date Provider Diagnosis [facility] [address] [address] 04/19/2024 CHRISTINA NARANJO Unspecified lump in the right breast, unspecified quadrant N63.10 and Unspecified lump in the left breast, unspecified quadrant N63.20 Assessments Encounter Date Diagnosis (ICD Code) Assessment Notes Treatment Notes Treatment Clinical Notes Section Notes 04/19/2024 Unspecified lump in the right breast, unspecified quadrant (ICD-10 - N63.10) 04/19/2024 Unspecified lump in the left breast, unspecified quadrant (ICD-10 - N63.20) Plan Of Treatment Pending Test Test Name Order Date Ultrasound : Pelvic 07/22/2018 DIAGNOSTIC MAMMOGRAM, BILATERAL 09/26/19 24 THIN PREP,HPV,ABDI IF HPV+/CYT-,CT/GC(>2 9YR)(DIAG) 07/22/2018 Diagnostic Left Breast Mammo/US 10/05/19 22 DIGITAL SCREENING MAMMOGRAM, RIGHT BREAS T 10/04/2021 BILAT DIAGNOSTIC BREAST ULTRASOUND 04/19 BILAT DIAGNOSTIC BREAST ULTRASOUND 09/25 Insurance Providers Payer Name Payer Address Payer Phone Subscriber Number Group Number Insured Name Patient Relationship to Insured Coverage Start Date Coverage End Date [employer] [place] [address] [place] [address] [phone] [id number] ZAYDA ENG Self - patient is the insured Medical (General) History Medical History History ICD Code Bipolar disorder, unspecified F31.9 Left lower quadrant pain R10.32 Left lower quadrant abdominal swelling, mass and lump R19.04 Subserosal leiomyoma of uterus D25.2 Corpus luteum cyst of left ovary N83.12 Pelvic Pain R10.2 Subacute and chronic vaginitis N76.1 Mastodynia N64.4 Other specified menopausal and perimenop ausal disorders N95.8 Surgical History Surgery Date(Month/Year) Hysterectomy (fibroids) 12/01/18 Hospitalization History Reason Date(Month/Year) See Surgical Hx
--- OUTSIDE RECORDS SUMMARY | 2024-10-27 07:46 | XMS_ITS ---
Author Organization [facility] Address [address] [address] Care Team Providers Care Railroad Car Letterer Name Role Phone HYUN KEARNS M.D Primary Care Provider CHRISTINA Berry Unavailable [phone] REASON FOR VISIT BILAT 6 MO F/U BREAST US Encounters Encounter Location Date Provider Diagnosis [facility] [employer] [address] [address] 04/19/2024 CHRISTINA NARANJO Unspecified lump in the [...] Treatment Pending Test Test Name Order Date BILAT DIAGNOSTIC BREAST ULTRASOUND 04/19 Progress Notes * ZAYDA ENGDOB:1985 (38 yo F)Acc No.[id number]:04/19/2024 Patient:?ZAYDA ENG :1985???Age:38 Y???Sex:Female Address:[address] [place] [address], [address] Subjective: * Chief Complaints: * ???BILAT 6 MO F/U BREAST US * Medical History:? * Surgical History:? * Hospitalization/Major Diagno stic Procedure:? * Medications:? Objective: * Vitals:? * Physical Examination:? Assessment: * Assessment: 1.?Unspecified lump in the r ight breast, unspecified quadrant - N63.10???2.?Unspecified lump in the left breast, unspecified quadrant - N63.20??? Plan: * Treatment: 2.?Unspecified lump in the left breast, unspecified quadrant?Imaging: BILAT DIAGNOSTIC BREAST ULTRASOUND* 6 MONTH FOLLOW UP FOR BILATE RAL BREAST MASSES ON MAMMO. * Procedure Codes:? * true * Date:? Generated for Patel felipe/Gaviota/eTransmitting on:?10/27/2024 07:45 AM EDT
[2024-10-27 10:22] LABS: Basophils Absolute Auto 0.1 X10*3/uL (0.0-0.2); Basophils Percent Auto 0.5 % (0-2); Eosinophils Absolute Auto 0.1 X10*3/uL (0.0-0.4); Eosinophils Percent Auto 0.5 % (0-4); Hematocrit 38.6 % (37.0-47.0); Hemoglobin 13.4 g/dl (12.0-16.0); Imm Gran Abs Auto 0.06 X10*3/uL (0.00-0.03); Imm Gran Pct Auto 0.4 % (0.0-0.4); Lymphocytes Percent Auto 48.7 % (20-40); MANUAL DIFF FLAG SCAN; Mean Corpuscular HGB Conc 34.7 g/dl (31.0-35.0); Mean Corpuscular Hemoglobin 31.7 pg (27.0-33.0); Mean Corpuscular Volume 91.3 fL (80.0-98.0); Mean Platelet Volume 11.2 fL (9.4-12.3); Monocytes Absolute Auto 1.4 X10*3/uL (0.1-1.2); Neutrophils Absolute Auto 6.2 x10*3/uL (2.0-8.3); Neutrophils Percent Auto 40.9 % (45-73); Platelet Count 364 X10*3/uL (160-400); Red Blood Count 4.23 X10*6/uL (4.20-5.50); Red Cell Distribution Width 13.9 % (11.0-16.0); SCAN SMEAR FLAG 1; White Blood Count 15.1 X10*3/uL (4.8-10.8)
[2024-10-27 10:24] LABS: Lymphocytes Absolute Auto 7.4 X10*3/uL (1.2-4.9)
[2024-10-27 10:27] LABS: Appearance Urine Clear; Color Urine Yellow; Glucose Urine UA Negative (Negative); Leukocyte Esterase Urine Negative (Negative); Nitrite Urine Negative (Negative); UMIC TRIGGER UACC YES; Urine Blood Trace (Negative); Urine Ketones Negative (Negative); Urine Protein Negative (Neg-Trace)
[2024-10-27 10:34] LABS: Bacteria Urine None Seen (None Seen); Hyaline Casts Urine 0-2 /LPF (0-2); RBC Urine 0-2 /HPF (0-2); WBC Urine 0-5 /HPF (0-5)
[2024-10-27 11:11] LABS: SLIDE REVIEW VERIFIED
[2024-10-27 11:24] LABS: Alanine Aminotransferase 19 U/L (0-31); Albumin Level 4.2 g/dL (3.5-5.0); Alkaline Phosphatase 55 U/L (39-117); Anion Gap 12 (12-20); Aspartate Amino Transferase 19 U/L (5-31); Bilirubin Total 0.3 mg/dL (0.0-1.0); Blood Urea Nitrogen 18 mg/dL (9-16); Calcium 9.2 mg/dL (8.4-10.2); Carbon Dioxide 22 mmol/L (22-29); Chloride 110 mmol/L (96-108); Cholesterol 172 mg/dL (<200); Estimated Glomerular Filt Rate > 60; Glucose Fasting 92 mg/dL (60-99); HDL Cholesterol 52 mg/dL (>40); LDL Cholesterol Calculated 109 mg/dL (<100); Potassium 3.3 mmol/L (3.3-5.1); Sodium 141 mmol/L (135-145); Triglycerides 57 mg/dL (<150)
[2024-10-27 11:45] LABS: TSH reflex Free T4 2.14 uIU/mL (0.32-4.0)
== END 2024-10-27 07:43 | disposition home or self-care (01) ==
LOC: HO.HMGCX 07:42
PROVIDERS: PCP Nurse Practitioner Family; Visit Provider Nurse Practitioner Family
DX: Z00.00 Encounter for general adult medical examination without abnormal findings (principal); B34.9 Viral infection, unspecified
CPT/HCPCS: 36415; 71046; 80053; 80061; 81001; 84443; 85025

== ENCOUNTER → 2024-10-27 08:25 | Outpatient (BNV) | payer BC, SELFPAY | PROVIDERS: PCP Nurse Practitioner Family; Visit Provider Radiology Diagnostic Radiology | DX: B34.9 Viral infection, unspecified (principal) | CPT/HCPCS: 71046 ==

== ENCOUNTER 2024-12-02 09:57 | Outpatient (REF) | payer BC, SELFPAY ==
[2024-12-02 13:11] LABS: MANUAL DIFF FLAG NO
[2024-12-02 13:22] LABS: Basophils Absolute Auto 0.1 X10*3/uL (0.0-0.2); Basophils Percent Auto 0.6 % (0-2); Eosinophils Absolute Auto 0.1 X10*3/uL (0.0-0.4); Eosinophils Percent Auto 0.9 % (0-4); Hematocrit 38.2 % (37.0-47.0); Hemoglobin 13.2 g/dl (12.0-16.0); Imm Gran Abs Auto 0.03 X10*3/uL (0.00-0.03); Imm Gran Pct Auto 0.3 % (0.0-0.4); Lymphocytes Absolute Auto 3.4 X10*3/uL (1.2-4.9); Lymphocytes Percent Auto 35.2 % (20-40); Mean Corpuscular HGB Conc 34.6 g/dl (31.0-35.0); Mean Corpuscular Hemoglobin 31.3 pg (27.0-33.0); Mean Corpuscular Volume 90.5 fL (80.0-98.0); Mean Platelet Volume 12.2 fL (9.4-12.3); Monocytes Percent Auto 10.5 % (2-11); Neutrophils Absolute Auto 5.1 x10*3/uL (2.0-8.3); Neutrophils Percent Auto 52.5 % (45-73); Platelet Count 243 X10*3/uL (160-400); Red Blood Count 4.22 X10*6/uL (4.20-5.50); White Blood Count 9.8 X10*3/uL (4.8-10.8)
[2024-12-02 13:39] LABS: Alanine Aminotransferase 13 U/L (0-31); Albumin Level 4.3 g/dL (3.5-5.0); Alkaline Phosphatase 56 U/L (39-117); Anion Gap 11 (12-20); Aspartate Amino Transferase 18 U/L (5-31); Bilirubin Total 0.4 mg/dL (0.0-1.0); Blood Urea Nitrogen 13 mg/dL (9-16); Calcium 9.3 mg/dL (8.4-10.2); Carbon Dioxide 23 mmol/L (22-29); Chloride 108 mmol/L (96-108); Estimated Glomerular Filt Rate > 60; Glucose Random 86 mg/dL (60-115); Sodium 138 mmol/L (135-145); Total Protein 7.1 g/dL (6.5-8.0)
== END 2024-12-02 09:58 | disposition home or self-care (01) ==
LOC: HO.HMGCLDS 09:57
PROVIDERS: PCP Nurse Practitioner Family; Visit Provider Nurse Practitioner Family
DX: R05.9 Cough, unspecified (principal); R21 Rash and other nonspecific skin eruption; D72.829 Elevated white blood cell count, unspecified; F17.200 Nicotine dependence, unspecified, uncomplicated
CPT/HCPCS: 36415; 80053; 85025; 96127

== ENCOUNTER 2024-12-02 09:57 | Outpatient (AMB) | payer BC, SELFPAY ==
--- NOTE | 2024-12-02 10:00 | MHC.PC.OV ---
Vital Signs 12/02/24 10:08 Height 5 ft 4 in Weight 111 lb BMI 19.1 BP 118/78 Blood Pressure Location Lt brachial Position Sitting Pulse 82 Pulse Source Pulse Oximeter Pulse Oximetry (%) 98 Oxygen Delivery Method Room Air Intake Visit Reasons: Med. Review Salesperson Neckties Required: No Accompanied by: Self / Same As Patient Allergies No Known Allergies Allergy (Verified 12/02/24 10:33) Medication List - Last Reconciled 12/02/24 by RAMEZ Escalante hydroxyzine HCl 5 - 10 mg PO BID PRN olanzapine 10 mg PO BEDTIME 30 days Tobacco use date assessed: 12/02/24 Dental Screening Dental Screen Date: 12/02/24 Did you have a dental visit in the last 12 months?: Yes Did you have a dental problem in the last 6 months where you did not have access to dental care?: No Was dental information given to patient?: Patient has dentist HPI Med. Review HPI Details Chief Complaint The patient presents with an ongoing cough and a new rash on her anterior chest. History of Present Illness The patient is a 39-year-old female presenting with an ongoing cough and newly developed rash. She has quit smoking recently, which might be contributing to her cough. There was a previous finding of leukocytosis. She denies other symptoms such as fever or chills. The rash on her anterior chest developed a few days ago and consists of small, pruritic papular lesions with erythema, possibly allergy-related. She is currently being monitored and will follow up for further evaluation and management. Social History - Patient recently quit smoking, indicating a change in substance use. Health Maintenance - Chest X-ray was performed and returned negative. - Patient scheduled for a dermatology appointment in December for further evaluation of the rash. Review of Systems - Respiratory: Reports ongoing cough; denies fever and chills. - Dermatologic: Reports rash on anterior chest, pruritic with papular lesions and erythema. Physical Exam General: Cooperative, healthy appearing, comfortable, no acute distress and well developed Orientation: Patient oriented x3 Limitations: No limitations Head: Normal to inspection Ears: Hearing grossly normal bilaterally Nose: Normal external nose present Face and sinus: Normal facial exam Eyes: Appearance normal, both eyes and all related structures Neck: Normal visual inspection and Yes full ROM Respiratory: Normal respiratory effort and able to speak in complete sentences. Clear/slightly dim to auscultation bilaterally Cardiovascular: Regular rate and rhythm. Normal S1 and S2 GI: Normal to inspection. Soft to palpation and nontender Skin: faint Rash noted on anterior chest with small papular lesions and erythema, slightly pruritic Neuro: Patient oriented x3 Extremities: Normal to inspection Results - Imaging: Chest X-ray normal, negative findings. Plan The patient will have a CAT scan to further investigate the ongoing cough, and her CBC and CMP will be repeated due to prior leukocytosis findings. For the new rash, cetirizine is to be started to alleviate symptoms, with a derm appointment scheduled for a thorough evaluation. Health monitoring and follow-up communication through the patient portal are advised, alongside continuous support for her recent smoking cessation. Discussion Notes We discussed the ongoing cough and the normal chest X-ray results, while acknowledging the need for a CAT scan to further investigate the etiology of her symptoms. The treatment and management options for the cough due to smoking cessation were explained, and the importance of continued abstinence from smoking was reinforced. Regarding the rash, the potential allergy connection was explored, with a plan to monitor and treat with cetirizine while awaiting her dermatological evaluation. I explained the benefits of these interventions, and to follow-up with me via portal. Patient Instructions - Continue taking cetirizine as prescribed for rash. - Report any changes in the cough or rash via the patient portal. - Follow up with dermatology in December. - Maintain smoking cessation efforts. [facility] Medical History Impingement of right shoulder H/O psychiatric care Anxiety Surgical History History of lumpectomy of left breast S/P right knee surgery History of hysterectomy History of salpingectomy Family History Father Bipolar 1 disorder Substance use disorder Mental health disorder Mother Vertigo Paternal Grandmother Breast cancer Paternal Aunt Breast cancer Maternal Grandfather Emphysema, unspecified Maternal Grandmother Vertigo Skin cancer Social History Housing: House Patient Tobacco Use Status: Former Tobacco user Cigarettes Per Day: 10 e-Cigarette/Vaping Use: Former Use Second Hand Smoke Exposure: No service: No Current occupational status: employed Current occupation: insurance Current occupational exposures/hazards: No Cognitive needs: No Hearing needs: No Vision needs: No Questionnaire PHQ-9 Over the last 2 weeks, how often have you been bothered by any of the following problems? 1. Little interest or pleasure in doing things: not at all 2. Feeling down, depressed, or hopeless: not at all 3. Trouble falling or staying asleep, or sleeping too much: not at all 4. Feeling tired or having little energy: not at all 5. Poor appetite or overeating: not at all 6. Feeling bad about yourself - or that you are a failure or have let yourself or your family down: not at all 7. Trouble concentrating on things, such as reading the newspaper or watching television: not at all 8. Moving or speaking so slowly that other people could have noticed. Or the opposite - being so fidgety or restless that you have been moving around a lot more than usual: not at all 9. Thoughts that you would be better off or of hurting yourself in some way: not at all Total score: 0 Depression Screening Interpretation: Negative Depression Screening Done: Yes 56962 - PHQ-9 Billing: Yes Source: Developed by Drs. Arnulfo Sanchez, Alicia Jackson, Luis Antonio Nuno and colleagues, with an educational dwight from [employer]. Thrive Questionnaire Date Thrive assessed: 12/02/24 I am a: Patient What is your living situation today?: I have a steady place to live Within the past 12 months, did the food you bought not last and you didn't have the money to get more?: Never true Within the past 12 months, did you worry whether your food would run out before you got money to buy more?: Never true Do you have trouble paying for medicines?: No Do you have trouble getting transportation to medical appointments?: No Do you have trouble paying your heating and electricity bill?: No Do you have trouble taking care of your child, family member or friend?: No Do you have trouble with day-to-day activities such as bathing, preparing meals, shopping, managing finances, etc.?: No Are you currently unemployed and looking for a job?: No Are you interested in more education?: No Please select the resources that you would like help with: None Currently or been in a relationship where the following occur: No concerns reported THRIVE Score: 0 AUDIT C Alcohol Use Questionnaire (AUDIT-C) 1. How often do you have a drink containing alcohol?: Monthly or less 2. How many drinks containing alcohol do you have on a typical day when you are drinking?: 1 or 2 3. How often do you have six or more drinks on one occasion?: Never Total Score: 1 Score Reviewed/Action Taken: Yes DIMITRI-7 AMB Questionnaire DIMITRI-7 Date DIMITRI - 7 assessed: 12/02/24 Feeling nervous, anxious, or on edge: 0 = Not at all Not being able to stop or control worryin = Not at all Worrying too much about different things: 0 = Not at all Trouble relaxin = Not at all Being so restless that it is hard to sit still: 0 = Not at all Becoming easily annoyed or irritable: 0 = Not at all Feeling afraid as if something awful might happen: 0 = Not at all Total DIMITRI-7 score (0-4 normal; 5-9 mild; 10-14 moderate; 15-21 severe): 0 Source: Developed by Drs. Arnulfo Sanchez, Alicia Jackson, Luis Antonio Nuno and colleagues, with an educational dwight from [employer]. DIMITRI-7 Assessment Billing DIMITRI-7 Assessment Tool: DIMITRI-7 Assessment 33246 Physical exam (Primary Care) Vital Signs: Last Vital Signs Pulse 82 12/02/24 10:08 BP 118/78 12/02/24 10:08 Pulse Ox 98 12/02/24 10:08 Oxygen Delivery Method Room Air 12/02/24 10:08 BMI result Body Mass Index 19.1 Tobacco/Smoking Status: Tobacco use Status Tobacco use date assessed 12/02/24 12/02/24 10:13 Patient Tobacco Use Status Former Tobacco user 12/02/24 10:13 e-Cigarette/Vaping Use Former Use 12/02/24 10:13 PHQ-9: PHQ-9 Score PHQ-9: Total score 0 12/02/24 10:13 Depression Screening Interpretation: Negative Thrive Assessment: Date of Thrive Assessment Date Thrive assessed 12/02/24 12/02/24 10:13 Currently or been in a relationship where the following occur: No concerns reported Coding Level of Care Code Est Pt Level 3 (86599) Diagnoses Smoker F17.200 Cough R05.9 Leukocytosis D72.829 Additional Codes DIMITRI-7 Assessment Billing - DIMITRI-7 Assessment Tool: DIMITRI-7 Assessment 99873 ([id number]) PHQ-9 - 11131 - PHQ-9 Billing: Yes ([id number]) Assessment & Plan Assessment & Plan (1) Smoker: Code(s): F17.200 - Nicotine dependence, unspecified, uncomplicated Category: Social Hx (2) Cough: Code(s): R05.9 - Cough, unspecified Category: Medical (3) Leukocytosis: Code(s): D72.829 - Elevated white blood cell count, unspecified Category: Medical Plan . Orders: Orders Complete Blood Count Auto Diff Today D72.829 - Elevated white blood cell count, unspecified, F17.200 - Nicotine dependence, unspecified, uncomplicated, R05.9 - Cough, unspecified CT chest wo IV con Today F17.200 - Nicotine dependence, unspecified, uncomplicated, R05.9 - Cough, unspecified Comprehensive Met. Panel Today D72.829 - Elevated white blood cell count, unspecified, F17.200 - Nicotine dependence, unspecified, uncomplicated, R05.9 - Cough, unspecified
[2024-12-02 10:08] VITALS: BP 118/78; PULSE 82; O2SAT 98; BMI 19.1
--- OUTSIDE RECORDS SUMMARY | 2024-12-02 10:59 | XMS_ITS ---
Author Organization [facility] Address [address] [place] [address] Care Team Providers Care Data Miner Name Role Phone Codey Theresa Unavailable [phone] Encounters Encounter Location Date Provider Diagnosis [address] [address] 02/24/2024 Theresa Alegre ASSESSMENTS Encounter Date Diagnosis Assessment Notes Treatment Notes Treatment Clinical Notes Section Notes 02/24/2024 Case discussed with collaborating physician Stefan Ramos who reviewed the assessment and plan. Chart, medications, labs, vital signs reviewed. Dictation was accomplished with the use of Syncplicity voice recognition software, prone to medical misidentifications [...] Notes * Lashawn ENGDOB:1985 (39 yo F)Acc No.[id number]:02/24/2024 Progress Notes Patient:??Lashawn ENG Provider:??Theresa Alegre PA-C :1985?Age:38 Y?Sex:Fe male Date:02/24/2024 Address:[place], [place] Subjective: * Chief Complaints: * ? * [...] Dictation was accomplished with the use of Syncplicity voice recognition software, prone to medical misidentifications [...] questions/concerns arise. Plan: * Treatment: * Procedure Codes:??84227 NO S HOW OFFICE VISIT * Images: Billing Information: * Visit Code:?? * Procedure Codes:?? 57921 NO SHOW OFFICE VISIT. * Sign off [...]
--- OUTSIDE RECORDS SUMMARY | 2024-12-02 10:59 | XMS_ITS ---
Author Organization [facility] Address [address] [place] [address] Care Team Providers Care Lead Warehouse Associate Name Role Phone HYUN KEARNS M.D Primary Care Provider CHRISTINA Berry Unavailable [phone] REASON FOR VISIT FOUND SMALL LUMP UNDER BREAST Encounters Encounter Location Date Provider Diagnosis [facility] [employer] [address] [address] 08/31/2024 CHRISTINA NARANJO Plan Of Treatment Next Appt Details Provider Name:CHRISTINA Whitley, 12/17/2024 02:30:00 PM, [address] [facility], [address], [place], [address], Progress Notes * ZAYDA ENGDOB:1985 (39 yo F)Acc No.[id number]:08/31/2024 PROGRESS NOTES Patient:?ZAYDA ENG Provider:?CHRISTINA NARANJO MD :1985???Age:39 Y???Sex:Female D ate:08/31/2024 Address:[address] [place], [place] [address] Pcp:HYUN KEARNS M.D Subjective: * Chief Complaints: * ???1. FOUND SMALL LUMP UNDER BREAST. * Medical History:? Objective: * Vitals:? Assessment: Plan: * Treatment: * Images: Billing Information: * Visit Code:? * Procedure Codes:? * Electronic signature of CHRISTINA NARANJO MD on 12/02/2024 at 10:58 AM EDT Sign off status: Pending * Provider:?CHRISTINA NARANJO MD Date:?2024 Generated for Patel felipe/Gaviota/Ricky on:?12/02/2024 10:58 AM EDT
--- OUTSIDE RECORDS SUMMARY | 2024-12-02 10:59 | XMS_ITS | Patient Health Record ---
Author Organization [facility] Address [employer] [address] [address] Care Team Providers Care Bank Cashier Name Role Phone HYUN KEARNS M.D Primary Care Provider CHRISTINA Berry Unavailable [phone] Allergies No Known Allergies Reason For Referral [...] Status W/U Status Risk Notes Problem Mastodynia (74555327) Mastodynia (N64.4) Active confirmed Problem Bipolar disorder (35647598) Bipolar disorder, unspecified (F31.9) Active confirmed Problem Subacute and chronic vaginitis (N76.1) Active confirmed mild BV Problem Perimenopausal disorder (743623721) Other specified menopausal and perimenopausal disorders (N95.8) Active confirmed Encounters Encounter Location Date Provider Diagnosis [facility] [address] [address] 04/19/2024 CHRISTINA NARANJO Unspecified lump in the [...] BREAS T 10/04/2021 BILAT DIAGNOSTIC BREAST ULTRASOUND 09/25 BILAT DIAGNOSTIC BREAST ULTRASOUND 04/19 Next Appt Details Provider Name:CHRISTINA MAI S, 12/17/2024 02:30:00 PM, [address] [employer], [address], [place], [address], Insurance Providers Payer Name Payer Address Payer Phone Subscriber Number Group Number Insured Name Patient Relationship to Insured Coverage Start Date Coverage End Date [employer] [address] [place] [address] [id number] ZAYDA ENG Self - patient is the [...]
--- OUTSIDE RECORDS SUMMARY | 2024-12-02 10:59 | XMS_ITS | Patient Health Record ---
Author Organization [facility] Address [address] [place] [address] Care Team Providers Care Leather Sponger Name Role Phone Theresa Alegre Unavailable [phone] REASON FOR REFERRAL No Information Encounters Encounter Location Date Provider Diagnosis [address] [place] [address] 02/24/2024 Theresa Codey ASSESSMENTS Encounter Date Diagnosis Assessment Notes Treatment Notes Treatment Clinical Notes Section Notes 02/24/2024 Case discussed with collaborating physician Stefan Ramos who reviewed the assessment and plan. Chart, medications, labs, vital signs reviewed. Dictation was accomplished with the use of [employer] voice recognition software, prone to medical misidentifications [...] Insured Coverage Start Date Coverage End Date [facility] [address] [place] [address] [id number] OliveLashawn duarte Self - patient is the insured
--- OUTSIDE RECORDS SUMMARY | 2024-12-02 10:59 | XMS_ITS ---
Author Organization [employer] Address [address] [address] Care Team Providers Care Roll Form Operator Name Role Phone HYUN KEARNS M.D Primary Care Provider CHRISTINA Berry Unavailable [phone] REASON FOR VISIT FOUND SMALL LUMP UNDER BREAST Encounters Encounter Location Date Provider Diagnosis [facility] [employer] [address] [address] 08/26/2024 CHRISTINA NARANJO Unspecified lump in breast [...] weight loss Vit E 1,200IU and/or Evening Starrucca Oil 3000mg daily x 6 months and [...] weight loss Vit E 1,200IU and/or Evening Starrucca Oil 3000mg daily x 6 months and reevaluate Pending Test Test Name Order Date Ultrasound : Breast(s), unilateral or bi lateral 08/26/2024 Diagnostic Digital Breast 3D, Bilateral 08/26/2024 Next Appt Details Provider Name:CHRISTINA Whitley, 12/17/2024 02:30:00 PM, [address], [address], [place], [address], Progress Notes * VELASQUEZ, ZAYDADOB:1985 (39 yo F)Acc No.[id number]:08/26/2024 PROGRESS NOTES Patient:?ZAYDA ENG Provider:?CHRISTINA NARANJO MD :1985???Age:39 Y???Sex:Female D ate:08/26/2024 Address:[address] [place], [place] [id number] Pcp:HYUN KEARNS M.D Subjective: * Chief Complaints: * ???1. FOUND SMALL LUMP UNDER BREAST. * HPI: ???BUTTON SAWYER (Problems):?Breast Pain/Mass:?Date of onset:?__ ?How did the [...] weight loss Vit E 1,200IU and/or Evening Starrucca Oil 3000mg daily x 6 months and reevaluate?? * Images: Billing Information: * Visit Code:? 18019 Office Visit, Est Pt., Level 4. * Procedure Codes:? * Electronic signature of CHRISTINA NARANJO MD on 12/02/2024 at 10:58 AM EDT Sign off status: Pending * Provider:?CHRISTINA NARANJO MD Date:?2024 Generated for Patel felipe/Gaviota/eTransmitting on:?12/02/2024 10:58 AM EDT History and Physical Notes * HPI (History of Present Illness) Category Sub-Category Detail Notes Category Not es BUTTON SAWYER (Problems) Breast Pain/Mass: Date of onset:: __ [...]
--- OUTSIDE RECORDS SUMMARY | 2024-12-02 10:59 | XMS_ITS ---
Author Organization [facility] Address [address] [facility] [address] [place] [address] Care Team Providers Care Auto Body Service Mechanic Name Role Phone HYUN KEARNS M.D Primary Care Provider CHRISTINA Berry Unavailable [phone] REASON FOR VISIT BILAT 6 MO F/U BREAST US Encounters Encounter Location Date Provider Diagnosis [facility] [address] [place] [address] 04/19/2024 CHRISTINA NARANJO Unspecified lump in the [...] Order Date BILAT DIAGNOSTIC BREAST ULTRASOUND 04/19 Next Appt Details Provider Name:CHRISTINA Whitley, 12/17/2024 02:30:00 PM, [address] [facility], [address], [place], [address], Progress Notes * ZAYDA ENGDOB:1985 (38 yo F)Acc No.[id number]:04/19/2024 Patient:?VELASQUEZ ZAYDA :1985???Age:38 Y???Sex:Female Address:[address] [place] [address], [id number] Subjective: * Chief Complaints: * ???BILAT 6 [...] true * Date:? Generated for Patel felipe/[place]/eTransmitting on:?12/02/2024 10:59 AM EDT
== END 2024-12-02 11:05 | disposition home or self-care (01) ==
LOC: HO.HMCC 09:58
PROVIDERS: PCP Nurse Practitioner Family; Visit Provider Nurse Practitioner Family
DX: F17.200 Nicotine dependence, unspecified, uncomplicated (principal); R05.9 Cough, unspecified; D72.829 Elevated white blood cell count, unspecified